=== PATIENT | male | born 2000 ===

== ENCOUNTER 2024-06-02 21:47 | Emergency (ER) | payer SELFPAY ==
[~2024-06-02] VITALS: Ht 162.6 cm; Wt 81.4 kg
[2024-06-02 21:50] VITALS: BP 141/79; TEMP 97.8; O2SAT 97
== END 2024-06-02 22:49 | disposition left against medical advice (07) ==
LOC: M ED 21:47
DX: Z53.21 Procedure and treatment not carried out due to patient leaving prior to being seen by health care provider (principal)